=== PATIENT | female | born 1970 | race Caucasian/White ===

== ENCOUNTER 2017-12-29 08:05 | Day surgery (SDC) | payer BC ==
[~2017-12-29] VITALS: Ht 162.6 cm; Wt 87.4 kg
[~2017-12-29 08:05] MED LIST: BACITRACIN OINT 500U/GM, 15 GM ONE; EPINEPHRINE 1 MG/ML, 1ML ONE; EPINEPHRINE TOPICAL SOLN 1 MG/ML, 30ML ONE; FLUORESCEIN OPHTHALMIC 1 MG STRIP ONE; LIDOCAINE-MPF 1%, 5ML ONE; OXYMETAZOLINE NASAL SPRAY 0.05%, 15ML ONE
[2017-12-29] MEDS ORDERED: MIDAZOLAM 1 MG/ML, 2ML ONE (08:13)
[2017-12-29] MEDS ORDERED: LACTATED RINGERS 1,000 ML IV SCH (08:32)
[2017-12-29] MEDS ORDERED: OXYMETAZOLINE NASAL SPRAY 0.05%, 15ML NAS ONE (08:32)
[2017-12-29 08:54] VITALS: BP 122/80
[2017-12-29] MEDS ORDERED: NONE PER PATIENT (08:57)
[2017-12-29] MEDS ORDERED: FENTANYL PF 250 MCG/5ML ONE (09:27)
[2017-12-29] MEDS ORDERED: CEFAZOLIN 1,000 MG ONE (10:23)
[2017-12-29] MEDS ORDERED: ROCURONIUM 10 MG/ML,10ML ONE (10:23)
[2017-12-29] MEDS ORDERED: SUCCINYLCHOLINE 20 MG/ML, 10ML ONE (10:23)
[2017-12-29] MEDS ORDERED: PROPOFOL 10 MG/ML, 20ML ONE (10:23)
[2017-12-29] MEDS ORDERED: METOCLOPRAMIDE 5 MG/ML, 2ML ONE (10:23)
[2017-12-29] MEDS ORDERED: DEXAMETHASONE 4 MG/ML, 1ML ONE (10:23)
[2017-12-29] MEDS ORDERED: LIDOCAINE 1%, 20ML INFIL ONE (10:48)
[2017-12-29] MEDS ORDERED: FENTANYL PF 100 MCG/2ML IV PRN (11:30)
[2017-12-29] MEDS ORDERED: MEPERIDINE/PF 25MG/0.5ML IVPush PRN (11:30)
[2017-12-29] MEDS ORDERED: HYDROmorphone 1 MG/ML, 1ML IV PRN (11:30)
[2017-12-29] MEDS ORDERED: ONDANSETRON 2MG/ML, 2ML IVPush PRN (11:30)
[2017-12-29] MEDS ORDERED: KETOROLAC 30 MG/1 ML IV PRN (11:30)
[2017-12-29] MEDS ORDERED: PROMETHAZINE 25 MG/ML, 1ML IV PRN (11:30)
[2017-12-29] MEDS ORDERED: ALBUTEROL SULFATE 2.5 MG/3 ML NPPB PRN (11:30)
[2017-12-29] MEDS ORDERED: METOCLOPRAMIDE 5 MG/ML, 2ML IV PRN (11:30)
[2017-12-29] MEDS ORDERED: OXYcodone 5 MG/5 ML ORAL.SOL UDC PO PRN (11:30)
[2017-12-29] MEDS ORDERED: LABETALOL 5MG/ML, 20ML IV PRN (11:30)
[2017-12-29] MEDS ORDERED: hydrALAzine 20 MG/ML, 1ML IV PRN (11:30)
[2017-12-29] MEDS ORDERED: OXYcodone 5 MG/5 ML ORAL.SOL UDC ONE (12:29)
[2017-12-29] MEDS ORDERED: ACETAMINOPHEN 650 MG/20.3 ML UDC ONE (12:29)
== END 2017-12-29 14:00 ==
LOC: OUT 08:05
PROVIDERS: ATTEND Otolaryngology
DX: J32.2 Chronic ethmoidal sinusitis (principal); J32.0 Chronic maxillary sinusitis; J32.3 Chronic sphenoidal sinusitis; J34.2 Deviated nasal septum; J01.91 Acute recurrent sinusitis, unspecified; J32.9 Chronic sinusitis, unspecified; J45.909 Unspecified asthma, uncomplicated; Z72.89 Other problems related to lifestyle
CPT/HCPCS: 30520; 31256; 31257; 61782; 88304; J0171; J0330; J0690; J1100; J2250; J2704; J2765; J3010; J3490; J7120; S1090